=== PATIENT | female | born 1970 | race Caucasian/White ===

== ENCOUNTER → 2021-09-02 | Day surgery (SDC) | payer OTHER ==
[~2021-09-02] VITALS: Ht 167.6 cm; Wt 77.3 kg
[~2021-09-02] MED LIST: CETIRIZINE HCL10 MG PO; LEVOTHYROXINE50 MCG PO; TRIVORA-28 TAB1 EACH PO
== END | disposition home or self-care (01) ==
LOC: FAS 07:46
DX: Z12.11 Encounter for screening for malignant neoplasm of colon (principal); K31.9 Disease of stomach and duodenum, unspecified; K21.00 Gastro-esophageal reflux disease with esophagitis, without bleeding; K25.9 Gastric ulcer, unspecified as acute or chronic, without hemorrhage or perforation; K57.30 Diverticulosis of large intestine without perforation or abscess without bleeding; E03.9 Hypothyroidism, unspecified; Z83.71 Family history of colonic polyps; Z88.0 Allergy status to penicillin; Z88.2 Allergy status to sulfonamides
CPT/HCPCS: 43239; G0121; 84703; J2250; J2704; J7120